=== PATIENT | male | born 1940 | race Asian ===

== ENCOUNTER 2019-04-17 08:56 | Day surgery (SDC) | payer MEDICARE ==
[2019-04-12 13:36] VITALS: Ht 162.6 cm; Wt 77.3 kg
[2019-04-17] VITALS (8 sets, daily range): BP systolic 109–169; BP diastolic 56–71; PULSE 66–100; RESP 12–74
[~2019-04-17] VITALS: Ht 162.6 cm; Wt 77.3 kg
[~2019-04-17 08:56] MED LIST: AMLO-147 PO; ASPI81TA52 PO; ATOR20TA38 PO; CYCLOPENTOLATE 2% 2 ML OPH OPER SCH; FINA5TAB4 PO; GABA300C16 PO; HYDR-3672 PO; LEVE100018 PO; LOSA50TA14 PO; METF100010 PO; METO-448 PO; NEPAFENAC 0.1% 3 ML OPH OPER SCH; PHENYLephrine 10% 5 ML OPH OPER SCH; TAMS-14 PO
[2019-04-17] MEDS: MOXIFLOXACIN 0.5% 3 ML OPH OPER ONE ×2 (09:34→13:15)
[2019-04-17] MEDS ORDERED: SOD CHLORIDE 0.9% 1,000 ML IV SCH (10:00)
[2019-04-17] MEDS ORDERED: NA BICARB 50 MEQ/50 ML VIAL ONE (12:16)
[2019-04-17] MEDS ORDERED: LIDOCAINE 1% (MPF) 30 ML INJ ONE (12:16)
[2019-04-17] MEDS ORDERED: EPINEPHrine 1 MG INJ ONE (12:16)
[2019-04-17] MEDS ORDERED: LIDOCAINE /PF 2% 10 ML AMPUL ONE (12:16)
[2019-04-17] MEDS ORDERED: TIMOLOL 0.5% 5 ML OPH ONE (12:16)
[2019-04-17] MEDS ORDERED: BUPIVACAINE 0.75% (MPF) 10 ML INJ ONE (12:16)
[2019-04-17] MEDS ORDERED: TETRACAINE 0.5% 4 ML OPH ONE (12:16)
[2019-04-17] MEDS ORDERED: PROPOFOL 20 ML ONE (12:47)
[2019-04-17] MEDS ORDERED: MIDAZOLAM 1 MG/ML 2 ML INJ ONE (12:47)
[2019-04-17] MEDS ORDERED: LIDOCAINE 2% (SDV) 5 ML INJ ONE (12:47)
== END 2019-04-17 15:10 | disposition home or self-care (01) ==
LOC: SDS 08:56
PROVIDERS: ATTEND Ophthalmology
DX: H25.12 Age-related nuclear cataract, left eye (principal); E11.9 Type 2 diabetes mellitus without complications; Z86.73 Personal history of transient ischemic attack (TIA), and cerebral infarction without residual deficits; I12.9 Hypertensive chronic kidney disease with stage 1 through stage 4 chronic kidney disease, or unspecified chronic kidney disease; N18.9 Chronic kidney disease, unspecified; Z79.84 Long term (current) use of oral hypoglycemic drugs
CPT/HCPCS: 66984; 82962; J0171; J2250; V2632